=== PATIENT | female | born 1975 | race Caucasian/White ===

== ENCOUNTER 2019-12-26 10:00 | Emergency (ER) | payer OTHER ==
[2019-12-26 10:13] VITALS: BP 143/92; PULSE 87; RESP 18; TEMP 98.3
--- NOTE | 2019-12-26 10:35 | ED ---
General Adult HPI - General Chief complaint: Eye Problems Stated complaint: eye problems Time Seen by Provider: 12/26/19 10:19 Source: patient, RN notes reviewed Mode of arrival: ambulatory Limitations: no limitations - History of Present Illness Initial comments: Patient is a pleasant 44-year-old female presenting to the emergency Department with complaints of sinus congestion. Patient states symptoms have been occurring for several days. Patient now is starting to Drainage from her eyes. Eyes were matted shut this morning. No fevers. Patient does have a mild cough. Patient was seen at urgent care 2 days ago and given medications however no antibiotics. Patient was given eyedrops however does not believe that they were antibiotic eyedrops. - Related Data Previous Rx's Medication Instructions Recorded Amoxic-Pot Clav 875-125Mg 1 tab PO Q12HR #20 tablet 12/26/19 [Augmentin 875-125] Ciprofloxacin Ophth Soln [Cipro 1 drops BOTH EYES Q4HR #1 bottle 12/26/19 0.3% Ophth Soln] Allergies Allergy/AdvReac Type Severity Reaction Status Date / Time No Known Allergies Allergy Verified 12/26/19 10:13 Review of Systems ROS Statement: Those systems with pertinent positive or pertinent negative responses have been documented in the HPI. ROS Other: All systems not noted in ROS Statement are negative. Constitutional: Denies: fever, chills Eyes: Reports: as per HPI, eye discharge ENT: Reports: congestion. Denies: ear pain Respiratory: Reports: cough. Denies: dyspnea Cardiovascular: Denies: chest pain Endocrine: Denies: fatigue Gastrointestinal: Denies: abdominal pain Genitourinary: Denies: dysuria Musculoskeletal: Denies: back pain Skin: Denies: rash Neurological: Denies: weakness Past Medical History Past Medical History: Hyperlipidemia History of Any Multi-Drug Resistant Organisms: None Reported Additional Past Surgical History / Comment(s): d &c x2 Past Psychological History: Anxiety Smoking Status: Current every day smoker Past Alcohol Use History: Occasional Past Drug Use History: None Reported General Exam Limitations: no limitations General appearance: alert, in no apparent distress Head exam: Present: normocephalic Eye exam: Present: normal appearance, PERRL, EOMI, conjunctival injection, other (No uptake with fluorescein staining) Expanded Eyelids: Normal Inspection: Bilateral Pupils: Regular, Round: Bilateral Sclera/Conjunctival: Injection: Bilateral ENT exam: Present: normal oropharynx, other (Tenderness over the maxillary sinuses) Respiratory exam: Present: normal lung sounds bilaterally Cardiovascular Exam: Present: regular rate, normal rhythm GI/Abdominal exam: Present: soft. Absent: tenderness Extremities exam: Present: normal inspection Neurological exam: Present: alert Psychiatric exam: Present: normal affect, normal mood Skin exam: Present: normal color Course Vital Signs 12/26/19 10:11 Temperature 98.3 F Pulse Rate 87 Respiratory 18 Rate Blood Pressure 143/92 O2 Sat by Pulse 97 Oximetry Disposition Clinical Impression: Sinusitis Disposition: HOME SELF-CARE Condition: Stable Instructions (If sedation given, give patient instructions): Sinusitis (ED), Conjunctivitis (ED) Additional Instructions: Please follow-up with primary care physician in the next couple days for recheck. Return for visual problems, fevers, worsening symptoms or other co ncerns. [id number]-[id number] saline nasal spray. Prescriptions: Amoxic-Pot Clav 875-125Mg [Augmentin 875-125] 1 tab PO Q12HR #20 tablet Ciprofloxacin Ophth Soln [Cipro 0.3% Ophth Soln] 1 drops BOTH EYES Q4HR #1 bottle Is patient prescribed a controlled substance at d/c from ED?: No Referrals: Raphael Guzmán DO [Primary Care Provider] - 1-2 days Time of Disposition: 10:35
== END 2019-12-26 10:53 | disposition home or self-care (01) ==
LOC: EC 10:00
DX: J32.9 Chronic sinusitis, unspecified (principal); F17.200 Nicotine dependence, unspecified, uncomplicated
CPT/HCPCS: 99283

== ENCOUNTER 2020-11-14 10:39 | Emergency (ER) | payer OTHER ==
[2020-11-14 10:47] VITALS: BP 153/112; PULSE 86; RESP 18; TEMP 97.8
[2020-11-14] MEDS ORDERED: Acetaminophen-Codeine 300-30mg TAB PO STA (11:01)
[2020-11-14] MEDS ORDERED: ORPHENADRINE 30 MG/ML 2 ML VIAL IM STA (11:01)
[2020-11-14] MEDS ORDERED: KETOROLAC 15 MG/ML 1 ML VIAL IM STA (11:01)
--- NOTE | 2020-11-14 11:03 | ED ---
Fall HPI - General Chief Complaint: Fall Stated Complaint: fall/rib pain Time Seen by Provider: 11/14/20 10:48 Source: patient, RN notes reviewed, old records reviewed Mode of arrival: ambulatory - History of Present Illness Initial Comments: Patient is a 45-year-old female who presents emergency department today with right-sided rib pain for 2 days after she fell while getting out of bed and she slipped. She reports that when she slipped she landed on the edge of her night stand up on her right rib. She reports pain with the deep breathing and states it feels better if she can put her arm over the ribs to help splint. Patient states that she wishes she may have cracked a rib. She denies any change in urination or significant abdominal pain. No vomiting. Patient relates that she's had no other complaints. - Related Data Home Medications Medication Instructions Recorded Confirmed ALPRAZolam [Xanax] 0.25 mg PO DAILY PRN 11/14/20 11/14/20 FLUoxetine HCL [PROzac] 20 mg PO DAILY@1200 11/14/20 11/14/20 HYDROcodone/APAP 10-325MG [[place] 1 tab PO Q6HR PRN 11/14/20 11/14/20 10-325] Ibuprofen [Motrin] 800 mg PO Q8H PRN 11/14/20 11/14/20 Previous Rx's Medication Instructions Recorded Cyclobenzaprine [Flexeril] 10 mg PO TID #12 tab 11/14/20 HYDROcodone/APAP 5-325MG [[place] 1 tab PO Q6HR PRN #10 tab 11/14/20 5-325] Allergies Allergy/AdvReac Type Severity Reaction Status Date / Time No Known Allergies Allergy Verified 11/14/20 12:09 Review of Systems ROS Statement: Those systems with pertinent positive or pertinent negative responses have been documented in the HPI. ROS Other: All systems not noted in ROS Statement are negative. Past Medical History Past Medical History: Hyperlipidemia History of Any Multi-Drug Resistant Organisms: None Reported Additional Past Surgical History / Comment(s): d &c x2 Past Psychological History: Anxiety Smoking Status: Current every day smoker Past Alcohol Use History: Rare Past Drug Use History: None Reported General Exam - General Exam Comments Initial Comments: 35-year-old female. Alert and oriented 3. No acute distress. Limitations: no limitations General appearance: alert, in no apparent distress Head exam: Present: atraumatic, normocephalic, normal inspection Eye exam: Present: normal appearance, PERRL, EOMI. Absent: scleral icterus, conjunctival injection, periorbital swelling ENT exam: Present: normal exam, mucous membranes moist Neck exam: Present: normal inspection. Absent: tenderness, meningismus, lymphadenopathy Respiratory exam: Present: normal lung sounds bilaterally, other (Patient has tenderness over the right ribs. No bruising noted.). Absent: respiratory distress, wheezes, rales, rhonchi, stridor Cardiovascular Exam: Present: regular rate, normal rhythm, normal heart sounds. Absent: systolic murmur, diastolic murmur, rubs, gallop, clicks GI/Abdominal exam: Present: soft Extremities exam: Present: normal inspection, full ROM, normal capillary refill. Absent: tenderness, pedal edema, joint swelling, calf tenderness Back exam: Present: normal inspection Neurological exam: Present: alert, oriented X3, CN II-XII intact Psychiatric exam: Present: normal affect, normal mood Course Vital Signs 11/14/20 10:45 Temperature 97.8 F Pulse Rate 86 Respiratory 18 Rate Blood Pressure 153/112 O2 Sat by Pulse 98 Oximetry Medical Decision Making - Medical Decision Making 45-year-old female presents return today with complaints of concern for right rib tenderness after she following this couple days ago. Patient's x-rays station and signs of rib fracture is displacedand of pleural effusion or pneumothorax. Patient's vital signs are stable. Patient was given incentive spirometer. I discussed return parameters and will discharge Patient with muscle her oxygenation inflammatory medicine. - Radiology Data Radiology results: report reviewed X-ray shows no acute displaced rib fracture. Disposition Clinical Impression: Rib fracture Disposition: HOME SELF-CARE Condition: Good Instructions (If sedation given, give patient instructions): Rib Fracture (ED) Additional Instructions: Patient advised to use incentive spirometer as discussed taking 10 deep breaths every hour while awake. Sleeping in a recliner. His pain medicine as prescribed. Follow-up with PCP. Prescriptions: Cyclobenzaprine [Flexeril] 10 mg PO TID #12 tab HYDROcodone/APAP 5-325MG [[place] 5-325] 1 tab PO Q6HR PRN #10 tab PRN Reason: Pain Is patient prescribed a controlled substance at d/c from ED?: No Referrals: Raphael Guzmán DO [Primary Care Provider] - 1-2 days Time of Disposition: 12:30
--- NOTE | 2020-11-14 12:02 | XR ---
EXAMINATION TYPE: XR ribs RT w pa chest xray DATE OF EXAM: 11/14/2020 COMPARISON: NONE TECHNIQUE: PA and lateral views submitted. HISTORY: Pain FINDINGS: The lungs are clear and there is no pneumothorax, pleural effusion, or focal pneumonia. No acute displaced rib fracture. IMPRESSION: 1. No acute displaced rib fracture.
== END 2020-11-14 12:30 | disposition home or self-care (01) ==
LOC: EC 10:39
DX: S22.31XA Fracture of one rib, right side, initial encounter for closed fracture (principal); F41.9 Anxiety disorder, unspecified; F17.200 Nicotine dependence, unspecified, uncomplicated; Z79.899 Other long term (current) drug therapy; W06.XXXA Fall from bed, initial encounter
CPT/HCPCS: 71101; 99284; 96372 ×2; J2360; J1885

== ENCOUNTER 2024-06-16 17:22 | Emergency (ER) | payer OTHER ==
--- NOTE | 2024-06-16 18:18 | ED ---
Chest Pain HPI - General Chief Complaint: Chest Pain Stated Complaint: chest pain Time Seen by Provider: 06/16/24 17:42 Source: patient, RN notes reviewed Mode of arrival: ambulatory Limitations: no limitations - History of Present Illness Initial Comments: 49-year-old female with history of anxiety and hyperlipidemia presenting with chest pain x 2 days. States chest pain is substernal and describes the pain as a tightness. Pain does not radiate. Pain is worse with deep inspiration. Patient states she has had this before and it is usually relieved when she takes a Xanax, however she has been taking Xanax once daily (last was yesterday) with little relief. Denies blood thinners. Cough, fever, nasal congestion, sore throat, abdominal pain. Denies worsening of pain with food intake. Denies history of cardiac or pulmonary conditions. - Related Data Home Medications Medication Instructions Recorded Confirmed ALPRAZolam [Xanax] 0.25 mg PO DAILY PRN 11/14/20 11/14/20 FLUoxetine HCL [PROzac] 20 mg PO DAILY@1200 11/14/20 11/14/20 HYDROcodone/APAP 10-325MG [[place] 1 tab PO Q6HR PRN 11/14/20 11/14/20 10-325] Ibuprofen [Motrin] 800 mg PO Q8H PRN 11/14/20 11/14/20 Previous Rx's Medication Instructions Recorded Cyclobenzaprine [Flexeril] 10 mg PO TID #12 tab 11/14/20 HYDROcodone/APAP 5-325MG [[place] 1 tab PO Q6HR PRN #10 tab 11/14/20 5-325] Allergies Allergy/AdvReac Type Severity Reaction Status Date / Time No Known Allergies Allergy Verified 11/14/20 12:09 Review of Systems ROS Statement: Those systems with pertinent positive or pertinent negative responses have been documented in the HPI. ROS Other: All systems not noted in ROS Statement are negative. EKG Findings - EKG Results: EKG: interpreted by AMBER (EKG reveals normal sinus rhythm with first-degree AV block. Ventricular rate 82 bpm, [place] interval 231, QRS duration 82, QT/QTc 336/375) Past Medical History Past Medical History: Hyperlipidemia History of Any Multi-Drug Resistant Organisms: None Reported Additional Past Surgical History / Comment(s): d &c x2 Past Psychological History: Anxiety Smoking Status: Current every day smoker Past Alcohol Use History: Rare Past Drug Use History: None Reported General Exam Limitations: no limitations General appearance: alert, in no apparent distress, anxious Head exam: Present: atraumatic, normocephalic, normal inspection Eye exam: Present: normal appearance, PERRL, EOMI. Absent: scleral icterus, conjunctival injection, periorbital swelling ENT exam: Present: normal exam, normal oropharynx, mucous membranes moist Neck exam: Present: normal inspection. Absent: tenderness, meningismus, lymphadenopathy Respiratory exam: Present: normal lung sounds bilaterally. Absent: respiratory distress, wheezes, rales, rhonchi, stridor Cardiovascular Exam: Present: regular rate, normal rhythm, normal heart sounds. Absent: systolic murmur, diastolic murmur, rubs, gallop, clicks GI/Abdominal exam: Present: soft, normal bowel sounds. Absent: distended, tenderness, guarding, rebound, rigid Neurological exam: Present: alert, oriented X3 Psychiatric exam: Present: normal affect, normal mood, anxious (Tearful on exam) Skin exam: Present: warm, dry, intact, normal color. Absent: rash Course Vital Signs 06/16/24 06/16/24 17:36 19:13 Temperature 99.2 F 98.1 F Pulse Rate 98 85 Respiratory 20 18 Rate Blood Pressure 163/102 135/89 O2 Sat by Pulse 99 99 Oximetry Chest Pain MDM - MDM Was pt. sent in by a medical professional or institution (, PA, CHILLER TECHNICIAN, urgent care, hospital, or intermediate...) When possible be specific @ -No Did you speak to anyone other than the patient for history (EMS, parent, family, police, friend...)? What history was obtained from this source @ -No Did you review nursing and triage notes (agree or disagree)? Why? @ -I reviewed and agree with nursing and triage notes Were old charts reviewed (outside hosp., previous admission, EMS record, old EKG, old radiological studies, urgent care reports/EKG's, intermediate records)? Report findings @ -No old charts were reviewed Differential Diagnosis (chest pain, altered mental status, abdominal pain women, abdominal pain men, vaginal bleeding, weakness, fever, dyspnea, syncope, headache, dizziness, GI bleed, back pain, seizure, CVA, palpatations, mental health, musculoskeletal)? @ -Differential Chest Pain: Stable Angina, Unstable Angina, STEMI, NSTEMI Aortic Dissection, Pneumothorax, Musculoskeletal, Esophageal Spasm GERD, Cholecystitis, Pancreatitis, Zoster, this is not meant to be an all-inclusive list. EKG interpreted by me (3pts min.). @ -As above X-rays interpreted by me (1pt min.). @ -X-ray ordered but not obtained due to patient left AMA CT interpreted by me (1pt min.). @ -None done U/S interpreted by me (1pt. min.). @ -None done What testing was considered but not performed or refused? (CT, X-rays, U/S, labs)? Why? @ -Patient left AMA before CBC, CMP, troponin, coagulation lab work and chest x- ray returned. What meds were considered but not given or refused? Why? @ -None Did you discuss the management of the patient with other professionals (professionals i.e. , PA, CHILLER TECHNICIAN, lab, RT, psych nurse, licensed master social worker, lawyer criminal, teacher, defence force senior officer, supportive employment case manager)? Give summary @ -No Was smoking cessation discussed for >3mins.? @ -No Was critical care preformed (if so, how long)? @ -No Were there social determinants of health that impacted care today? How? (Homelessness, low income, unemployed, alcoholism, drug addiction, transportation, low edu. Level, literacy, decrease access to med. care, retirement, rehab)? @ -No Was there de-escalation of care discussed even if they declined (Discuss DNR or withdrawal of care, Hospice)? DNR status @ -No What co-morbidities impacted this encounter? (DM, HTN, Smoking, COPD, CAD, Cancer, CVA, ARF, Chemo, Hep., AIDS, mental health diagnosis, sleep apnea, morbid obesity)? @ -None Was patient admitted / discharged? Hospital course, mention meds given and route, prescriptions, significant lab abnormalities, going to OR and other pertinent info. @ -Patient left AGAINST MEDICAL ADVICE. Patient was seen and evaluated for chest pain x 2 days. Vital signs and physical exam is unremarkable. EKG revealed normal sinus rhythm with first-degree AV block. Chest x-ray was ordered but not obtained. Lab work including CBC, CMP, troponin, coagulations were ordered, however patient left AMA before results return. Risks of leaving AMA discussed with patient and patient shows understanding. Case was discussed with my ED attending Dr. Jones. Undiagnosed new problem with uncertain prognosis? @ -No Drug Therapy requiring intensive monitoring for toxicity (Heparin, Nitro, Insulin, Cardizem)? @ -No Were any procedures done? @ -No Diagnosis/symptom? @ -Chest pain Acute, or Chronic, or Acute on Chronic? @ -Acute Uncomplicated (without systemic symptoms) or Complicated (systemic symptoms)? @ -Uncomplicated Side effects of treatment? @ -No Exacerbation, Progression, or Severe Exacerbation? @ -No Poses a threat to life or bodily function? How? (Chest pain, [place], [place], pneumonia, PE, COPD, DKA, ARF, appy, cholecystitis, CVA, Diverticulitis, Homicidal, Suicidal, threat to staff... and all critical care pts) @ -Yes chest pain Disposition Clinical Impression: Chest pain Disposition: LEFT AGAINST MEDICAL ADVICE Condition: Undetermined Referrals: Raphael Guzmán DO [Primary Care Provider] - 1-2 days Time of Disposition: 19:30
[2024-06-16] MEDS: ASPIRIN 81 MG PO STA (18:47)
[2024-06-16 18:51] LABS: Basophils # (A) 0.1 k/uL (0-0.2); Basophils % (A) 1 %; Eosinophils # (A) 0.2 k/uL (0-0.7); Eosinophils % (A) 2 %; HCT 43.3 % (34.0-46.0); HGB 14.3 gm/dL (11.4-16.0); Lymphocytes # (A) 1.8 k/uL (1.0-4.8); Lymphocytes % (A) 19 %; MCH 28.3 pg (25.0-35.0); MCV 85.9 fL (80.0-100.0); Mean Platelet Volume 7.1; Monocytes # (A) 0.6 k/uL (0-1.0); Monocytes % (A) 6 %; Neutrophils # (A) 6.8 k/uL (1.3-7.7); Neutrophils % (A) 70 %; Platelet Count 327 k/uL (150-450); RBC 5.04 m/uL (3.80-5.40); RDW 13.4 % (11.5-15.5); WBC 9.8 k/uL (3.8-10.6)
[2024-06-16 19:02] LABS: ALT 20 U/L (4-34); AST 25 U/L (14-36); African American GFR (CKD) >90 (>60 ml/min/1.73 sqM); Albumin 4.2 g/dL (3.5-5.0); Alkaline Phosphatase 79 U/L (38-126); Anion Gap 8 mmol/L; Blood Urea Nitrogen 13 mg/dL (7-17); Calcium 9.3 mg/dL (8.4-10.2); Carbon Dioxide 20 mmol/L (22-30); Chloride 108 mmol/L (98-107); Glucose 86 mg/dL (74-99); Magnesium 1.7 mg/dL (1.6-2.3); Non-African American GFR(CKD) >90 (>60 ml/min/1.73 sqM); Potassium 3.9 mmol/L (3.5-5.1); Sodium 136 mmol/L (137-145); Total Bilirubin 0.4 mg/dL (0.2-1.3); Total Protein 6.8 g/dL (6.3-8.2)
[2024-06-16 19:13] LABS: Partial Thromboplastin Time 24.6 sec (22.0-30.0); Prothrombin Time 10.6 sec (10.0-12.5)
[2024-06-16 19:15] VITALS: BP 135/89; PULSE 85; RESP 18; TEMP 98.1
== END 2024-06-16 19:14 | disposition left against medical advice (07) ==
LOC: EC 17:22
DX: I44.0 Atrioventricular block, first degree (principal); F17.200 Nicotine dependence, unspecified, uncomplicated; Z53.29 Procedure and treatment not carried out because of patient's decision for other reasons
CPT/HCPCS: 36415; 80053; 83735; 84484; 85025; 85610; 85730; 93005; 99285